=== PATIENT | male | born 1955 | race Caucasian/White ===

== ENCOUNTER 2017-04-15 11:00 | Inpatient (IN) ==
--- NOTE | 2017-04-14 16:10 | Discharge Summary ---
<Lizabeht Shearer E - Last Filed: 04/14/17 16:08> Date of Encounter: 04/14/17 - Discharge Diagnosis (1) Arthritis of left knee Priority: Primary Status: Chronic (2) Rheumatoid arthritis Priority: Secondary Status: Chronic Qualifiers: Rheumatoid arthritis location: unspecified site Rheumatoid factor presence : unspecified presence Qualified Code(s): M06.9 - Rheumatoid arthritis, unspecified (3) Chronic steroid use Priority: Secondary Status: Chronic (4) Hypertension Priority: Secondary Status: Chronic Qualifiers: Hypertension type: unspecified Qualified Code(s): I10 - Essential (primary ) hypertension (5) Chronic pain Priority: Secondary Status: Chronic Comments: Patient to continue chronic [place] for pain as directed by provider that prescribed this medication. Qualifiers: Chronic pain type: chronic pain syndrome Qualified Code(s): G89.4 - Chronic pain syndrome (6) BMI 27.0-27.9,adult Priority: Secondary Status: Chronic - Discharge Medications Prescriptions: Lidocaine Patch [Lidoderm 5% patch] 1 each TP DAILY #30 Meloxicam 15 mg PO DAILY #30 tablet Home Medications: Aspirin Enteric Coated [Aspirin EC] 325 mg PO DAILY #21 tablet. 04/14/17 [Rx] Cholecalciferol (D-3) [Vitamin D] 1,000 unit PO DAILY 04/15/17 [History] Diclofenac Sodium [Voltaren] 75 mg PO DAILY 04/15/17 [History] Gabapentin [Neurontin] 600 mg PO QID 04/15/17 [History] Multivitamin [One Daily Essential] 1 each PO DAILY 04/15/17 [History] Triamterene/HCTZ 37.5/25mg [Dyazide] 1 each PO DAILY 04/15/17 [History] amLODIPine [Norvasc] 5 mg PO DAILY 04/15/17 [History] predniSONE [PredniSONE] 5 mg PO BID 04/15/17 [History] Lidocaine Patch [Lidoderm 5% patch] 1 each TP DAILY #30 04/16/17 [Rx] Meloxicam 15 mg PO DAILY #30 tablet 04/16/17 [Rx] Allergies/Adverse Reactions: Allergies infliximab [From Remicade] Allergy (Verified 04/15/17 12:35) Anaphylaxis acetaminophen [From Vicodin] Adverse Reaction (Verified 04/15/17 12:35) Headache codeine [From Tylenol-Codeine #3] Adverse Reaction (Verified 04/15/17 12:35) Headache hydrocodone [From Vicodin] Adverse Reaction (Verified 04/15/17 12:35) Headache Primary care physician: Pj Isidro MD - Patient Status Disposition: Home Health Service Condition: Good - Discharge Instructions Follow Up With: Kevin Jesus MD [Partnered Physician] - 04/25/17 2:30 pm Pj Isidro MD [Primary Care Provider] - Additional Instructions: Discharge Instructions: Total Knee Replacement Please call [facility] ([phone]), your Primary Care Physician, or report to the Emergency Room if you have any of the following symptoms: Nausea, vomiting, fever greater that 101.5, swelling, chest pain, shortness of breath, increased pain/redness/drainage/odor for your incision site, numbness/ tingling, or any other concerning symptoms. ACTIVITY:Weight-bearing as tolerated. You may progress off support (crutches or walker) as tolerated. MEDICATIONS: Upon discharge resume your home medications. Take all the medications as prescribed. Take a stool softener if taking narcotic pain medications. Stool softeners are only effective if you drink enough fluids. Drink 6-8 glass of water or fluids a day, unless this is not allowed for another health problem. Despite using stool softeners, if you haven't had a bowel movement in 3 days, please switch to a gentle laxative. Gentle laxatives are sold over the counter. You should have a bowel movement within 24 hours, if not call the office. You will be discharged from the hospital with a prescription for pain medication. You are encouraged to decrease the use of narcotic pain medication as tolerated. Should you require a refill, please call the office. [facility] prescribes narcotic pain medication for only 4-6 weeks after surgery. If you require pain medication beyond this time period, you may be referred to your Primary Care Physician or to the Pain Clinic for further evaluation. Plan ahead for refills on pain medication as many narcotics either need to be picked up at the office or mailed. It is best to call 48-72 hours in advance of needing a prescription refill so you don't run out of medication. To help control the post-operative pain, you may take NSAIDs (Aleve,Advil, Motrin, Ibuprofen, Naprosyn) or Tylenol as prescribed on the bottle in addition to the pain medication. ANTICOAGULATION (blood thinners): Continue your Aspirin, Lovenox or Coumadin as prescribed to help prevent a blood clot in the leg or in the lungs. As long as your incision remains dry and you tolerate the NSAIDs (Aleve, Advil, Motrin, ibuprofen, naprosyn), it is OK to use the NSAIDS while you are taking your anticoagulation medication. Should your incision start to drain, stop the NSAID and contact our office. Common symptoms of blood clot in the legs include: localized pain, swelling, calf tenderness, redness or discoloration of the skin. Blood clot in the lung symptoms include: shortness of breath, rapid pulse, sweating, and chest pain that worsens with deep breathing, coughing up blood, lightheadedness, feelings of anxiety. If you experience any of these symptoms notify your physician immediately, go to the emergency room, or if having trouble breathing, call 911. WOUND CARE: Leave the dressing on for 7 to 10days. You may change the dressing if it becomes saturated greater than 50%. Do not get the dressing wet at anytime. Wash your hands with antibacterial soap, rinse and dry prior to any wound care. If you have yoandy the visiting nurse or rehab facility can remove the stapes 10-14 days after surgery and place steri-strips across the wound. Leave the steri-strips in place until they fall off on their won. You may let water from the shower run on top of the steri-strips. If you do not have a visiting nurse or rehab facility, you will need to return to the office at 10-14 days for the yoandy to be removed. If you have itching or redness around the dressing call the office. FOLLOW-UP: Please follow up with your surgeon in the orthopedic clinic in 4 weeks from the day of surgery. If you have yoandy that need to be removed, you will need to come back to the office in 10-14 days from the day of surgery. - Hospital Course Hospital course: Mr. Schumacher is a 61 year old male - Time Spent with Patient Total time spent providing and/or coordinating discharge services: - VTE Documentation of Mechanical Device: Venous foot pump, device <Ysaebl Hernandez - Last Filed: 04/16/17 13:22> Date of Encounter: 04/16/17 Time of Encounter: 13:22 - Discharge Diagnosis (1) Status post total left knee replacement Priority: Primary Status: Acute Labs on day of discharge: Labs from last 24 hours 04/16/17 04/16/17 04/15/17 05:46 05:46 15:43 Hgb 11.3 L 12.2 L D Hct 31.8 L 33.9 L Sodium 133 L Potassium 3.7 Chloride 96 L Carbon Dioxide 31 H BUN 13 Creatinine 1.09 Est GFR ( Amer) > 60 Est GFR (Non-Af Amer) > 60 BUN/Creatinine Ratio 12 Glucose 151 H Calculated Osmolality 279 L Calcium 8.6 - Impressions ITS Impressions Knee X-Ray 04/15/17 01:00 IMPRESSION: 1. Left total knee arthroplasty without immediate postsurgical complication. D/ / 04/15/2017 16:55:05 Frantz Mclean MD / sri Interpreting Provider: Frantz Mclean MD Date of admission: 04/15/17 16:18 Primary care physician: Pj Isidro MD Consults: 04/15/17 16:18 Consult to Occupational Therapy [CONS] Routine Comment: Evaluate, develop and implement POC Reason for Consult: post knee surgery Consult to Orthopedic Navigator [CONS] [CONS] Routine Consult to Physical Therapy [CONS] Routine Comment: Evaluate, develop and impliment POC Reason for Consult: post knee surgery Consult to Microfilming Document Preparer [CONS] Routine Reason for SW Consult: post op joint replacement RT Post Op Consult [CONS] Routine - Hospital Course Hospital course: Mr. Schumacher is a 61 year old male - Time Spent with Patient Total time spent providing and/or coordinating discharge services: <Kevin Jesus - Last Filed: 04/17/17 09:56> Date of Encounter: 04/17/17 Time of Encounter: 09:55 - Discharge Diagnosis (1) Arthritis of left knee Priority: Primary Status: Chronic (2) Rheumatoid arthritis Priority: Secondary Status: Chronic Qualifiers: Rheumatoid arthritis location: unspecified site Rheumatoid factor presence : unspecified presence Qualified Code(s): M06.9 - Rheumatoid arthritis, unspecified (3) Chronic steroid use Priority: Secondary Status: Chronic (4) Hypertension Priority: Secondary Status: Chronic Qualifiers: Hypertension type: unspecified Qualified Code(s): I10 - Essential (primary ) hypertension (5) Chronic pain Priority: Secondary Status: Chronic Qualifiers: Chronic pain type: chronic pain syndrome Qualified Code(s): G89.4 - Chronic pain syndrome (6) BMI 27.0-27.9,adult Priority: Secondary Status: Chronic (7) Status post total left knee replacement Priority: Secondary Status: Acute Primary care physician: Pj Isidro MD - Patient Status Functional capacity at discharge: uses cane/walker Overall status at discharge: patient is back to baseline - Hospital Course Hospital course: Mr. Schumacher is a 61 year old male Status post left total knee replacement uneventful postoperative course reviewed and by physical therapy discharge on aspirin for DVT prophylaxis follow -up only - Time Spent with Patient Total time spent providing and/or coordinating discharge services:
--- NOTE | 2017-04-14 16:14 | Physician Discharge Referral ---
Home Health/Hosp Referral Info Transfer to: Home Health Attending Provider: Dr. Kevin Jesus - Diagnosis (1) Status post total left knee replacement Priority: Primary Status: Acute (2) Arthritis of left knee Priority: Primary Status: Chronic (3) Rheumatoid arthritis Priority: Secondary Status: Chronic (4) Chronic steroid use Priority: Secondary Status: Chronic (5) Hypertension Priority: Secondary Status: Chronic (6) Chronic pain Priority: Secondary Status: Chronic (7) BMI 27.0-27.9,adult Priority: Secondary Status: Chronic - Respiratory Orders Smoking Cessation: Smoking cessation has been advised. For more information, call the [place] Tobacco Quit Line at 8-413-KTKE-NOW. - Dressing/Wound Care Site: left knee Type of Dressing/Treatments w/Frequency: Opsite placed. Keep dressing intact until first follow up appointment. If > 50% saturated, notify office, remove dressing and place appropriate dressing back in place. Dressing is water resistant, not water-proof. OK to shower, but do not get dressing wet. - Diet/Nutrition Diet/Nutrition Orders: Regular - Activity Activity Orders: Ambulate, Chair, Walker Activity: List: Total Knee replacement Precautions x 6 weeks Apply cold therapy wrap 3-6x/day for 20 minutes at a time. Encourage ambulation throughout the day and incentive spirometer 10x/hour. Elevate affected extremity above heart as tolerated. Brace: Wear knee immobilizer at night x 2 weeks. - Services Needed Following services are medically necessary services: Nursing, Physical Therapy, Occupational Therapy - Transfer Medications Prescriptions: Aspirin Enteric Coated [Aspirin EC] 325 mg PO DAILY #21 tablet. Home Medications: Clindamycin [Cleocin] 150 mg PO Q6HR #7 capsule 11/29/16 [Rx] HYDROcodone/Acet 5/325 mg [[place] 5-325 mg] 1 tab PO Q6H PRN #20 tab 11/29/16 [Rx ] Aspirin Enteric Coated [Aspirin EC] 325 mg PO DAILY #21 tablet. 04/14/17 [Rx] Allergies/Adverse Reactions: Allergies acetaminophen [From Vicodin] Allergy (Verified 11/30/16 09:30) Headache codeine [From Tylenol-Codeine #3] Allergy (Verified 11/30/16 09:30) Headache hydrocodone [From Vicodin] Allergy (Verified 11/30/16 09:30) Headache infliximab [From Remicade] Allergy (Verified 11/30/16 09:30) Anaphylaxis Certification: Further, I certify that my clinical findings support that this patient is homebound (i.e. absences from home require considerable and taxing effort and are for medical reasons or pentec[employer] services or infrequently or short duration when for other reasons) because: Homebound Reason: Post-surgery restriction and or conditions limit ability to leave home Attestation: My signature below is to certify that this patient is under my care and that I, or nurse practitioner, or physician cosmetic sales assistant working with me, has a face-to- face encounter with this patient.
[2017-04-15] MEDS ORDERED: CeFAZolin Pre 2,000 MG/100 ML 2,000 MG/100 ML BAG IVPB ONE (11:28)
[2017-04-15] MEDS ORDERED: Ringers Solution, Lactated 1,000 ML IVC SCH (11:30)
[2017-04-15] MEDS ORDERED: *HR* Midazolam HCl 2 MG/2 ML VIAL ONE ×3 (11:42→14:08)
[2017-04-15] MEDS ORDERED: *HR* Propofol 200 MG/20 ML VIAL IVP ONE (11:42)
[2017-04-15] MEDS ORDERED: *HR* FentaNYL (PF) 100 MCG/2 ML VIAL ONE ×2 (11:42→14:30)
[2017-04-15] MEDS ORDERED: Lidocaine -MPF 2% 2 ML VIAL ONE (11:42)
[2017-04-15] MEDS ORDERED: *HR* Labetalol 20 MG/4 ML SYRINGE IVP PRN (11:43)
[2017-04-15] MEDS ORDERED: Ondansetron 4 MG/2 ML VIAL IVP ONE (11:43)
[2017-04-15] MEDS ORDERED: *HR* Promethazine 25 MG/ML VIAL IVP PRN (11:43)
[2017-04-15] MEDS ORDERED: Dexamethasone 4 MG/ML VIAL IVP ONE (11:43)
--- NOTE | 2017-04-15 11:56 | History & Physical Report ---
Date of Encounter: 04/15/17 Time of Encounter: 11:56 24 Hour HP Update - Instructions Instructions: If the History and Physical is less than 30 days old and was completed prior to A.M. admission and or procedure and has NOT been updated on calendar day of procedure please complete this update prior to performing procedure. - Update Patient reports changes in Medical Condition: No Changes in examination, assessment, or condition: No Changes in Medication: No Preop tests/diagnostics Reviewed: Yes Surgery Remains Indicated: Yes Consent for Planned Operative Procedure(s) Verified: Yes - Pre-Operative Checklist Preoperative Checklist Indicated: No Prophylactic Antibiotic Ordered: Yes Is VTE Prophylaxis Indicated?: Yes
--- NOTE | 2017-04-15 12:11 | Anesthesia Evaluation PreOp ---
Date of Encounter: 04/15/17 Time of Encounter: 12:08 - Past History Planned Operation: Left Total Knee Arthroplasty Cardiac History: HTN Pulmonary History: Former smoker (quit 40 years ago) ENVIRONMENTAL SERVICES SPECIALIST History: Denies Any Significant HX Other Medical History: Other (RA) Anesthesia History: No Prior Anesthetic Complications, Past Anesthesia Alcohol Use: none Drug use: none Medications and Allergies Clindamycin [Cleocin] 150 mg PO Q6HR #7 capsule 11/29/16 [Rx] HYDROcodone/Acet 5/325 mg [[place] 5-325 mg] 1 tab PO Q6H PRN #20 tab 11/29/16 [Rx ] Aspirin Enteric Coated [Aspirin EC] 325 mg PO DAILY #21 tablet. 04/14/17 [Rx] Allergies acetaminophen [From Vicodin] Allergy (Verified 11/30/16 09:30) Headache codeine [From Tylenol-Codeine #3] Allergy (Verified 11/30/16 09:30) Headache hydrocodone [From Vicodin] Allergy (Verified 11/30/16 09:30) Headache infliximab [From Remicade] Allergy (Verified 11/30/16 09:30) Anaphylaxis - Meds/Allergy Pre-op Review Medications Reviewed: Yes Allergies Reviewed: Yes Beta Blockers on Current Med List: No Anesthesia Results - Labs Laboratory Tests 11/30/16 04/11/17 04/11/17 08:16 15:00 15:00 WBC 7.4 Hgb 13.7 POC Hgb 13.6 Plt Count 390 PT 10.9 INR 1.0 APTT 29.7 Sodium Potassium BUN Creatinine 04/11/17 15:00 WBC Hgb POC Hgb Plt Count PT INR APTT Sodium 133 L Potassium 3.2 L BUN 10 Creatinine 1.10 - Imaging EKG: report reviewed (04/11/2017 SB) Anesthesia Exam O2 Sat Height 1.7 m Height 1.7 m Weight 74.389 kg Weight 74.389 kg O2 Sat by Pulse Oximetry 98 Vital Signs Temp Pulse Resp BP Pulse Ox 97.8 F 69 16 147/83 98 04/15/17 11:29 04/15/17 11:29 04/15/17 11:29 04/15/17 11:29 04/15/17 11:29 Height: 5'7'' Weight: 164 lbs NPO (# of Hours): 8 Pain Scale: 10 (left Knee) Pain Scale Used: Numeric (1 - 10) - HEENT Pupil (Motor): EOMI Mallampati: II Teeth: Normal (chipped lower front tooth) Denture Type: Upper: Complete Oral Opening: Greater than 3 - ENVIRONMENTAL SERVICES SPECIALIST LOC: Oriented ENVIRONMENTAL SERVICES SPECIALIST Motor: Normal RUE, Normal LUE, Normal RLE, Normal LLE, Normal Face ENVIRONMENTAL SERVICES SPECIALIST Sensory: Normal: RUE, LUE, RLE, LLE, Face - Cardiac Rhythm: Regular Murmur: None - Pulmonary Breath Sounds: bilateral Clear Respiratory Effort: Symmetrical Anesthesia Assess/Plan ASA Score: 2 Modified [place] Scale for Level of Consciousness: Cooperative, oriented, and tranquil Anesthetic Plan: General, Regional Monitoring Plan: Standard Monitors Recovery Plan: PACU
[2017-04-15] MEDS ORDERED: ROPIVACAINE HCL/PF 0.5% 30 ML VIAL ONE (13:20)
[2017-04-15] MEDS ORDERED: Bupivacaine/Clonidine Syringe 1 EACH SYRINGE ONE (13:21)
--- NOTE | 2017-04-15 13:49 | Anesthesia Procedures ---
Date of Encounter: 04/15/17 Time of Encounter: 13:30 Procedures: Anesthesia - Nerve Block Procedure Date: 04/15/17 Time: 13:30 Allergies/Adv Reactions: inflixima, acetaminophen, codeine, hydrocodone Pre-op Diagnosis: Left knee pain Surgical Procedure: Left knee total arthroplasty Checklist: Correct Patient Identifier, Correct procedure, History checked Correct side: Left Blood Thinner: No Monitor Applied: EKG, BP, Pulse Oximetry Supplemental Oxygen via Nasal Cannula (L/min): 2 Sedation: Versed (mg): 4 Sedation: Fentanyl (mcg): 100 Indication: Post Op Analgesia Pre-op Neuro Deficits: No Block Type: Femoral, Other Catheter placed: No Sterile Technique: Yes Ultrasound used: Yes Anatomy identified: Yes Visual spread of Local: Yes Neuro Stimulation: Yes Nerve Stimulator Range: 0.2 - 0.4 mA Blood on Needle Aspiration: No Smooth Injection of Local: Yes Pain with Injection of Local: No Prep: Chlorhexadine Needle: 22 x 50 mm Stimuplex, 21 x 100 mm Stimuplex Local: 0.25% Bupivicaine w/Clonidine 20 mcg/cc, Ropivacaine Volume (cc): 50 Number of Attempts: 1 Complications: None/effective block Vitals: Vital Signs Temperature 97.8 F 04/15/17 11:29 Pulse Rate 69 04/15/17 11:29 Respiratory Rate 16 04/15/17 11:29 Blood Pressure 147/83 04/15/17 11:29 O2 Sat by Pulse Oximetry 98 04/15/17 11:29 Temperature 97.8 F 04/15/17 11:29 Pulse Rate 59 04/15/17 13:47 Respiratory Rate 16 04/15/17 13:47 Blood Pressure 139/76 04/15/17 13:47 O2 Sat by Pulse Oximetry 100 04/15/17 13:47
[2017-04-15] MEDS ORDERED: Ketorolac 30 MG/ML VIAL ONE (14:48)
--- NOTE | 2017-04-15 14:51 | Orthopedic Operative Note ---
Date of procedure: 04/15/17 Pre-op diagnosis: Left knee arthritis Post-op diagnosis: same Procedure: Procedure: Left Total knee replacement Estimated blood loss: 200 cc Hardware: Metal and polyethylene replacement. Arthrex Femur: 5 Tibia: 5 PS insert: 10 Patella: 34 Exam Under anesthesia: Full flexion and full extension no instability Procedural Notes: Grade 3 arthritic changes patellofemoral joint and lateral compartment. Operative procedure: The patient was brought to the operating room and placed on the operating room table. After general anesthesia was administered the operative knee was examined. Findings were noted in the exam under anesthesia. The operative extremity was prepped and draped in sterile surgical fashion. The patient received IV antibiotics prior to skin incision. A standard midline incision was made centered over the patella. The incision was made through the skin and subcutaneous tissue. A medial parapatellar tendon approach was performed. Care was taken to preserve tissue along the medial aspect of the patella. And to protect the patella tendon. The deep MCL was released off the medial tibia. The infra patella fat pad was excised. Knee was brought into flexion. Patient noted to have grade 3 arthritic changes lateral compartment and patellofemoral joint. The entry hole was made for the intramedullary femoral guide. The guide was seated in 6 degrees of valgus. Anterior cut was made followed by the distal cut. The ACL the PCL the medial and the lateral menisci were excised. The tibia was subluxed forward. The entry hole was made for the intramedullary tibial guide. Guide was seated to resect 2 mm off the more abnormal side. The knee was brought into flexion the distal femur was sized 5. The femoral guide was seated , the anterior cut was made followed by the posterior condylar cut, followed by the chamfer cuts. The finishing guide was seated the box cut was made and the lug holes were drilled. The tibia was sized 5, the tibial tray was seated and prepared with the large drill followed by the fin cutter. Trial reduction revealed full extension no varus valgus instability with the appropriate tension PS Anne. The patella was everted and cut was made at the level of the insertion of the quadriceps and patella tendon. The patella was sized 34 the guide was seated and the lug holes are drilled. Trial reduction revealed excellent patella tracking. All trial components were removed all bony surfaces were irrigated. The tibia was cemented first followed by the femur. The 10 PS Anne was seated and the knee was brought into full extension. The patella was cemented and held in place with the patellar holding clamp. After the cement had hardened, the knee sat for 2 minutes with a Betadine saline solution. The knee was then irrigated out with 2 L of pulse irrigation. The knee was closed by the PA. The extensor mechanism was closed with #2 FiberWire suture and #2 PDS suture. The subcutaneous tissue was then irrigated and closed deep with #1 PDS suture superficially with 0 PDS suture and skin was closed with skin yoandy. The patient was then placed in a sterile dressing and a postoperative brace extubated and transferred to recovery room in stable condition. Anesthesia: DENY Surgeon: Kevin Jesus Foot Roentgenologist: Lizabeth Shearer Condition: stable Disposition: PACU
[2017-04-15] MEDS: *HR* HYDROmorphone (PF) 1 MG/ML SYRINGE IVP PRN ×4 (15:46→19:42)
[2017-04-15 15:51] LABS: Hematocrit 33.9 % (37.5-50.1); Hemoglobin 12.2 g/dL (12.9-16.9)
--- NOTE | 2017-04-15 16:15 | Anesthesia Evaluation Post Op ---
Date of Encounter: 04/15/17 Time of Encounter: 16:15 - Vital Signs Vital Signs: Vital Signs/O2 Sat, Most Current Temp Pulse Resp BP Pulse Ox 98.7 F 67 20 164/97 99 04/15/17 16:10 04/15/17 16:10 04/15/17 16:10 04/15/17 16:10 04/15/17 16:10 - Lungs Lungs: Clear Ascult./Percussion - Airway Airway: Non-obstructed - Cardiovascular Regular Rate - Mental Status Mental Status: Alert & Oriented, Answers Appropriately - Pain Pain Scale: 6 Pain Scale used: Numeric (1 - 10) - Nausea Vomiting Nausea Vomiting: Not Present - Hydration Hydration: Ice chips, Has not voided - Discharge PostOp Status: Transfer Patient to floor
[2017-04-15] MEDS ORDERED: MOM Conc 10 ML UD.LIQ PO PRN (16:18)
[2017-04-15] MEDS ORDERED: *HR* OxyCODONE Immed Rel 5 MG TABLET PO PRN (16:18)
[2017-04-15] MEDS ORDERED: Naloxone 0.4 MG/ML INJ IVP PRN (16:18)
[2017-04-15] MEDS ORDERED: Temazepam 15 MG CAPSULE PO PRN (16:18)
[2017-04-15] MEDS ORDERED: Ondansetron 4 MG/2 ML VIAL IVP PRN (16:18)
[2017-04-15] MEDS ORDERED: Sennosides 8.6 MG TABLET PO PRN (16:18)
[2017-04-15] MEDS: *HR* OxyCODONE Immed Rel 5 MG TABLET PO PRN ×2 (16:47→22:45)
[2017-04-15] MEDS: Ringers Solution, Lactated 1,000 ML IVC SCH (17:39)
[2017-04-15] MEDS: *HR* Enoxaparin 30 MG/0.3 ML SYRINGE SQ SCH (17:41)
[2017-04-15] MEDS: Gabapentin 300 MG CAPSULE PO SCH ×2 (17:41→21:37)
[2017-04-15] MEDS ORDERED: *HR* Enoxaparin 30 MG/0.3 ML SYRINGE SQ SCH (18:00)
[2017-04-15] MEDS: ceFAZolin 2,000 MG in D5% in Water 100 ML IVPB SCH (21:37)
[2017-04-15] MEDS: predniSONE 5 MG TABLET PO SCH (21:37)
[2017-04-16] MEDS: Ringers Solution, Lactated 1,000 ML IVC SCH (00:39)
[2017-04-16] MEDS: *HR* HYDROmorphone (PF) 1 MG/ML SYRINGE IVP PRN ×5 (00:39→20:42)
[2017-04-16] MEDS: *HR* OxyCODONE Immed Rel 5 MG TABLET PO PRN ×3 (03:12→11:21)
[2017-04-16] MEDS: ceFAZolin 2,000 MG in D5% in Water 100 ML IVPB SCH (04:55)
[2017-04-16] MEDS: *HR* Enoxaparin 30 MG/0.3 ML SYRINGE SQ SCH ×2 (04:59→17:42)
[2017-04-16 06:49] LABS: Hematocrit 31.8 % (37.5-50.1); Hemoglobin 11.3 g/dL (12.9-16.9)
--- NOTE | 2017-04-16 06:49 | Orthopedics Progress Note ---
Date of Encounter: 04/16/17 Time of Encounter: 06:49 - Assessment and Plan (1) Arthritis of left knee Current Visit: Yes Status: Chronic (2) Rheumatoid arthritis Current Visit: Yes Status: Chronic Qualifiers: Rheumatoid arthritis location: unspecified site Rheumatoid factor presence : unspecified presence Qualified Code(s): M06.9 - Rheumatoid arthritis, unspecified (3) Chronic steroid use Current Visit: Yes Status: Chronic (4) Hypertension Current Visit: Yes Status: Chronic Qualifiers: Hypertension type: unspecified Qualified Code(s): I10 - Essential (primary ) hypertension (5) Chronic pain Current Visit: Yes Status: Chronic Qualifiers: Chronic pain type: chronic pain syndrome Qualified Code(s): G89.4 - Chronic pain syndrome (6) BMI 27.0-27.9,adult Current Visit: Yes Status: Chronic (7) Status post total left knee replacement Current Visit: Yes Status: Acute Subjective Interval history: Patient was seen this morning doing well without complaints. Afebrile vital signs stable. Operative extremity: Neurovascularly intact Dressing clean dry and intact Calves nontender Assessment and plan: Continue with postoperative care Hematocrit 33.9 Objective Vital signs: Vital Signs Temp Pulse Resp BP Pulse Ox 04/16/17 06:43 98.0 F 74 18 141/80 97 04/16/17 04:24 99 F 82 16 117/75 96 04/15/17 22:47 98.7 F 83 16 132/81 95 04/15/17 19:30 98.0 F 84 16 137/89 94 04/15/17 18:32 98.2 F 79 17 123/76 93 04/15/17 17:30 98.3 F 76 16 151/84 93 04/15/17 17:12 98.4 F 71 15 144/85 96 04/15/17 16:35 98.1 F 67 16 176/94 100 04/15/17 16:20 98.7 F 66 18 162/95 99 04/15/17 16:10 98.7 F 67 20 164/97 99 04/15/17 16:00 98.7 F 65 18 156/94 98 04/15/17 15:50 65 22 158/85 100 04/15/17 15:40 65 18 137/93 99 04/15/17 15:30 97.0 F L 64 18 155/88 100 04/15/17 13:47 59 16 139/76 100 04/15/17 13:20 65 16 161/88 100 04/15/17 11:29 97.8 F 69 16 147/83 98 Intake and Output 04/15/17 04/15/17 04/16/17 15:59 23:59 07:59 Intake Total 100 / 100 150 / 150 1400 / 1400 Output Total 200 / 200 850 / 850 250 / 250 Balance -100 / -100 -700 / -700 1150 / 1150 Intake: IV Fluids 100 / 100 100 / 100 1100 / 1100 Lactated Ringers 1,000 ML 1000 / 1000 @ 75 mls/hr IVC .[id number] [facility] Rx#:[id number] Ancef Premix 2,000 MG/100 100 / 100 ML 2,000 mg In 100 ml @ 200 mls/hr IVPB PREOP ONE Rx#:[id number] Ancef 2,000 MG In 100 / 100 100 / 100 Dextrose 5% 100 ML @ 200 mls/hr IVPB Q[facility]H [facility] Rx#: [id number] Oral 50 / 50 300 / 300 Output: Urine 850 / 850 250 / 250 Estimated Blood Loss 200 / 200 Other: Weight 74.389 kg 82 kg Patient Weight 04/16/17 23:59 Weight 82 kg - Labs CBC & BMP: 04/15/17 15:43 Labs: Abnormal lab results Hgb 12.2 g/dL (12.9-16.9) L D 04/15/17 15:43 Hct 33.9 % (37.5-50.1) L 04/15/17 15:43 - VTE Documentation of Mechanical Device: Venous foot pump, device Consult Discharge Plan - Plan Referrals: Pj Isidro MD [Primary Care Provider] -
[2017-04-16 06:58] LABS: BUN/Creatinine Ratio 12 (6-26); Blood Urea Nitrogen 13 mg/dL (8-26); Calcium 8.6 mg/dL (8.6-10.8); Carbon Dioxide 31 mEq/L (19-29); Chloride 96 mEq/L (98-109); Glucose 151 mg/dL (70-99); Osmolality,Calculated 279 (280-300); Potassium 3.7 mEq/L (3.5-4.5); Sodium 133 mEq/L (136-145); eGFR For African Americans > 60 (> 60); eGFR For Non-African Americans > 60 (> 60)
[2017-04-16] MEDS: amLODIPine 5 MG TABLET PO SCH (07:27)
[2017-04-16] MEDS: Multivit/Ca/Min/Fe/FA 1 TAB TABLET PO SCH (07:27)
[2017-04-16] MEDS: predniSONE 5 MG TABLET PO SCH ×2 (07:27→20:41)
[2017-04-16] MEDS: Cholecalciferol (D-3) 1,000 UNIT TABLET PO SCH (07:27)
[2017-04-16] MEDS: Gabapentin 300 MG CAPSULE PO SCH ×4 (07:27→20:41)
[2017-04-16] MEDS: Diclofenac Sodium 75 MG TABLET PO SCH (07:27)
--- NOTE | 2017-04-16 13:17 | Event Note ---
Date of Encounter: 04/16/17 Time of Encounter: 13:10 PCR - POD#1 - Left TKR Patient seen at bedside, doing well. Pain discussed in depth - chronic pain. He takes Ava 10/325 5 times a day. All questions and concerns addressed. Patient educated on post-operative restrictions and care. Addressed: Pain control - Lidoderm patches to be started, Starting Mobic 15mg daily. Increasing pain medication to his regular 5x a day dose. No home RX to be given for pain medication. D/C plan: Home health - D/C tomorrow.
[2017-04-16] MEDS: *HR* HYDROcodone/Acet 10/325 mg TABLET PO PRN ×2 (14:56→18:55)
[2017-04-17] MEDS: *HR* HYDROcodone/Acet 10/325 mg TABLET PO PRN ×3 (00:09→08:24)
[2017-04-17] MEDS: *HR* Enoxaparin 30 MG/0.3 ML SYRINGE SQ SCH (04:22)
[2017-04-17 05:22] LABS: Hematocrit 31.5 % (37.5-50.1)
[2017-04-17] MEDS: *HR* HYDROmorphone (PF) 1 MG/ML SYRINGE IVP PRN (05:29)
[2017-04-17 05:31] LABS: BUN/Creatinine Ratio 13 (6-26); Blood Urea Nitrogen 13 mg/dL (8-26); Calcium 9.2 mg/dL (8.6-10.8); Carbon Dioxide 32 mEq/L (19-29); Chloride 97 mEq/L (98-109); Glucose 124 mg/dL (70-99); Osmolality,Calculated 282 (280-300); Potassium 3.7 mEq/L (3.5-4.5); Sodium 135 mEq/L (136-145); eGFR For African Americans > 60 (> 60); eGFR For Non-African Americans > 60 (> 60)
[2017-04-17] MEDS: Gabapentin 300 MG CAPSULE PO SCH (08:24)
[2017-04-17] MEDS: Cholecalciferol (D-3) 1,000 UNIT TABLET PO SCH (08:24)
[2017-04-17] MEDS: Diclofenac Sodium 75 MG TABLET PO SCH (08:24)
[2017-04-17] MEDS: Multivit/Ca/Min/Fe/FA 1 TAB TABLET PO SCH (08:25)
[2017-04-17] MEDS: predniSONE 5 MG TABLET PO SCH (08:25)
[2017-04-17] MEDS: amLODIPine 5 MG TABLET PO SCH (08:25)
--- NOTE | 2017-04-17 09:57 | Orthopedics Progress Note ---
Date of Encounter: 04/17/17 Time of Encounter: 09:56 - Assessment and Plan (1) Arthritis of left knee Current Visit: Yes Status: Chronic (2) Rheumatoid arthritis Current Visit: Yes Status: Chronic Qualifiers: Rheumatoid arthritis location: unspecified site Rheumatoid factor presence : unspecified presence Qualified Code(s): M06.9 - Rheumatoid arthritis, unspecified (3) Chronic steroid use Current Visit: Yes Status: Chronic (4) Hypertension Current Visit: Yes Status: Chronic Qualifiers: Hypertension type: unspecified Qualified Code(s): I10 - Essential (primary ) hypertension (5) Chronic pain Current Visit: Yes Status: Chronic Qualifiers: Chronic pain type: chronic pain syndrome Qualified Code(s): G89.4 - Chronic pain syndrome (6) BMI 27.0-27.9,adult Current Visit: Yes Status: Chronic (7) Status post total left knee replacement Current Visit: Yes Status: Acute Subjective Interval history: Patient was seen this morning doing well without complaints. Afebrile vital signs stable. Operative extremity: Neurovascularly intact Dressing clean dry and intact Calves nontender Assessment and plan: Continue with postoperative care Hematocrit 31.5 discharged today Objective Vital signs: Vital Signs Temp Pulse Resp BP Pulse Ox 04/17/17 06:34 98.7 F 70 18 166/91 96 04/17/17 04:17 97.9 F 70 16 161/92 97 04/17/17 00:06 98.7 F 68 14 155/89 97 04/16/17 20:32 99 F 66 17 148/83 95 04/16/17 14:00 98.6 F 68 20 161/90 96 04/16/17 10:56 98.7 F 75 20 146/87 97 Intake and Output 04/16/17 04/17/17 04/17/17 23:59 07:59 15:59 Intake Total 120 / 120 Output Total 250 / 250 Balance -250 / -250 120 / 120 Intake: Oral 120 / 120 Output: Urine 250 / 250 Other: Meal Breakfast Percent of Meal Consumed 50% Weight 79.8 kg Patient Weight 04/17/17 23:59 Weight 79.8 kg - Labs CBC & BMP: 04/17/17 04:51 04/17/17 04:51 Labs: Abnormal lab results Hgb 11.0 g/dL (12.9-16.9) L 04/17/17 04:51 Hct 31.5 % (37.5-50.1) L 04/17/17 04:51 Sodium 135 mEq/L (136-145) L 04/17/17 04:51 Chloride 97 mEq/L (98-109) L 04/17/17 04:51 Carbon Dioxide 32 mEq/L (19-29) H 04/17/17 04:51 Glucose 124 mg/dL (70-99) H 04/17/17 04:51 - VTE Documentation of Mechanical Device: Graduated compression elastic hosiery Consult Discharge Plan - Plan Additional Instructions: Discharge Instructions: Total Knee Replacement Please call [facility] ([phone]), your Primary Care Physician, or report to the Emergency Room if you have any of the following symptoms: Nausea, vomiting, fever greater that 101.5, swelling, chest pain, shortness of breath, increased pain/redness/drainage/odor for your incision site, numbness/ tingling, or any other concerning symptoms. ACTIVITY:Weight-bearing as tolerated. You may progress off support (crutches or walker) as tolerated. MEDICATIONS: Upon discharge resume your home medications. Take all the medications as prescribed. Take a stool softener if taking narcotic pain medications. Stool softeners are only effective if you drink enough fluids. Drink 6-8 glass of water or fluids a day, unless this is not allowed for another health problem. Despite using stool softeners, if you haven't had a bowel movement in 3 days, please switch to a gentle laxative. Gentle laxatives are sold over the counter. You should have a bowel movement within 24 hours, if not call the office. You will be discharged from the hospital with a prescription for pain medication. You are encouraged to decrease the use of narcotic pain medication as tolerated. Should you require a refill, please call the office. [facility] prescribes narcotic pain medication for only 4-6 weeks after surgery. If you require pain medication beyond this time period, you may be referred to your Primary Care Physician or to the Pain Clinic for further evaluation. Plan ahead for refills on pain medication as many narcotics either need to be picked up at the office or mailed. It is best to call 48-72 hours in advance of needing a prescription refill so you don't run out of medication. To help control the post-operative pain, you may take NSAIDs (Aleve,Advil, Motrin, Ibuprofen, Naprosyn) or Tylenol as prescribed on the bottle in addition to the pain medication. ANTICOAGULATION (blood thinners): Continue your Aspirin, Lovenox or Coumadin as prescribed to help prevent a blood clot in the leg or in the lungs. As long as your incision remains dry and you tolerate the NSAIDs (Aleve, Advil, Motrin, ibuprofen, naprosyn), it is OK to use the NSAIDS while you are taking your anticoagulation medication. Should your incision start to drain, stop the NSAID and contact our office. Common symptoms of blood clot in the legs include: localized pain, swelling, calf tenderness, redness or discoloration of the skin. Blood clot in the lung symptoms include: shortness of breath, rapid pulse, sweating, and chest pain that worsens with deep breathing, coughing up blood, lightheadedness, feelings of anxiety. If you experience any of these symptoms notify your physician immediately, go to the emergency room, or if having trouble breathing, call 911. WOUND CARE: Leave the dressing on for 7 to 10days. You may change the dressing if it becomes saturated greater than 50%. Do not get the dressing wet at anytime. Wash your hands with antibacterial soap, rinse and dry prior to any wound care. If you have yoandy the visiting nurse or rehab facility can remove the stapes 10-14 days after surgery and place steri-strips across the wound. Leave the steri-strips in place until they fall off on their won. You may let water from the shower run on top of the steri-strips. If you do not have a visiting nurse or rehab facility, you will need to return to the office at 10-14 days for the yoandy to be removed. If you have itching or redness around the dressing call the office. FOLLOW-UP: Please follow up with your surgeon in the orthopedic clinic in 4 weeks from the day of surgery. If you have yoandy that need to be removed, you will need to come back to the office in 10-14 days from the day of surgery. Referrals: Kevin Jesus MD [Partnered Physician] - 04/25/17 2:30 pm Pj Isidro MD [Primary Care Provider] - Prescriptions: Lidocaine Patch [Lidoderm 5% patch] 1 each TP DAILY #30 Meloxicam 15 mg PO DAILY #30 tablet
[2017-04-17 10:43] VITALS: BP 152/81
== END 2017-04-17 11:24 | disposition home health service (06) | DRG 470 ==
LOC: SAMDAY 11:00 → 3NENU 16:18
PROVIDERS: ADMIT Orthopaedic Surgery; ATTEND Orthopaedic Surgery